=== PATIENT | male | born 1950 | race Caucasian/White ===

== ENCOUNTER 2016-11-07 15:12 | Inpatient (IN) | payer OTHER ==
[2016-11-07] VITALS (8 sets, daily range): BP systolic 119–150; BP diastolic 69–90; PULSE 112–137; RESP 18–20; TEMP 98.5–100.6; O2SAT 96–97
[~2016-11-07] VITALS: Ht 193 cm; Wt 111.9 kg
[~2016-11-07 15:12] MED LIST: ALPR1 PO; AMBI5TAB PO; BENA20TA PO; TEMA7.5C9 PO
[2016-11-07] MEDS ORDERED: ZOLP5TAB3 PO (15:23)
[2016-11-07] MEDS ORDERED: BENA20TA PO (15:23)
[2016-11-07] MEDS ORDERED: XANA1TAB2 PO (15:23)
[2016-11-07] MEDS ORDERED: LEVO25TA4 PO (15:23)
[2016-11-07] MEDS ORDERED: SODIUM CHLOR 0.9% 1000 ML INJ 1,000 ML IV ONE ×2 (15:30→17:45)
--- NOTE | 2016-11-07 15:30 | PD ---
HPI Chief Complaint: General Weakness Time Seen by Provider: 15:20 Travel History International Travel<30 days: No Contact w/Intl Traveler<30days: No Traveled to known affect area: No History of Present Illness HPI 65yo M with PMH of hypothyroidism, anxiety here with multiple complaints. Pt states he has dysuria, urinary frequency, epigastric discomfort, periumbilical abdominal pain today. States he has umbilical hernia and sometimes has the abdominal pain. Pt took 2 xanax prior to coming because he said he was shaking. Denies any sob, n/v, diarrhea, hematuria, focal weakness or numbness. PFSH Past Medical History Anxiety: Yes COPD: Yes Diminished Hearing: No Hypertension: Yes Thyroid Disease: Yes Influenza Vaccination: No ?: Not Past Surgical History Abdominal Surgery: Yes (HERNIA REPAIR x 2) Other Surgery: Yes (SKIN CA REMOVED) Social History Alcohol Use: Yes (2 BEERS/DAILY) Tobacco Use: No Substance Use: No Allergies-Medications (Allergen,Severity, Reaction): Coded Allergies: No Known Allergies (Verified , 11/07/16) Reported Meds & Prescriptions Reported Meds & Active Scripts Active Reported Levothyroxine (Levothyroxine Sodium) 25 Mcg Tab 0 PO DAILY Benazepril (Benazepril HCl) 20 Mg Tab 20 Mg PO DAILY Zolpidem (Zolpidem Tartrate) 5 Mg Tab 5 Mg PO HS PRN Xanax (Alprazolam) 1 Mg Tab 1 Mg PO Q6H PRN Review of Systems Except as stated in HPI: all other systems reviewed are Neg Physical Exam Narrative GENERAL: 65yo M in mild distress. SKIN: Focused skin assessment warm/dry. HEAD: Atraumatic. Normocephalic. EYES: Pupils equal and round. No scleral icterus. No injection or drainage. ENT: No nasal bleeding or discharge. Mucous membranes pink and moist. NECK: Trachea midline. No JVD. CARDIOVASCULAR: Regular rate and rhythm. No murmur appreciated. RESPIRATORY: No accessory muscle use. Clear to auscultation. Breath sounds equal bilaterally. GASTROINTESTINAL: Abdomen soft, +TTP epigastric and periumbilical region. No rebound tenderness or guarding. MUSCULOSKELETAL: No obvious deformities. No clubbing. No cyanosis. No edema. NEUROLOGICAL: Awake and alert. No obvious cranial nerve deficits. Motor grossly within normal limits. Normal speech. PSYCHIATRIC: Appropriate mood and affect; insight and judgment normal. Data Data Last Documented VS Vital Signs Date Time Temp Pulse Resp B/P (MAP) Pulse Ox O2 Delivery O2 Flow Rate FiO2 11/07/16 17:50 100.6 122 18 150/90 (110) 97 Room Air Orders Orders Basic Metabolic Panel (Bmp) (11/07/16 15:26) Complete Blood Count With Diff (11/07/16 15:26) Lipase (11/07/16 15:26) Urinalysis - C+S If Indicated (11/07/16 15:26) Ct Abd/Pel W Iv Contrast(Rout) (11/07/16 15:26) Iv Access Insert/Monitor (11/07/16 15:26) Ecg Monitoring (11/07/16 15:26) Oximetry (11/07/16 15:26) Thyroid Stimulating Hormone (11/07/16 15:26) Troponin I (11/07/16 15:26) Chest, Single Ap (11/07/16 ) Sodium Chlor 0.9% 1000 Ml Inj (Ns 1000 M (11/07/16 15:30) Lactic Acid Sepsis Protocol (11/07/16 15:30) Morphine Inj (Morphine Inj) (11/07/16 15:45) Urine Culture (11/07/16 15:35) Iohexol 350 Inj (Omnipaque 350 Inj) (11/07/16 16:35) Blood Culture (11/07/16 17:08) Ceftriaxone Inj (Rocephin Inj) (11/07/16 17:15) Sodium Chlor 0.9% 1000 Ml Inj (Ns 1000 M (11/07/16 17:45) Acetaminophen (Tylenol) (11/07/16 18:15) Admit Order (Ed Use Only) (11/07/16 ) Labs Laboratory Tests Test 11/07/16 15:30 11/07/16 15:35 11/07/16 17:55 White Blood Count 12.6 TH/MM3 Red Blood Count 5.27 MIL/MM3 Hemoglobin 16.1 GM/DL Hematocrit 49.3 % Mean Corpuscular Volume 93.6 FL Mean Corpuscular Hemoglobin 30.5 PG Mean Corpuscular Hemoglobin Concent 32.6 % Red Cell Distribution Width 12.8 % Platelet Count 147 TH/MM3 Mean Platelet Volume 9.2 FL Neutrophils (%) (Auto) 79.8 % Lymphocytes (%) (Auto) 5.1 % Monocytes (%) (Auto) 9.2 % Eosinophils (%) (Auto) 1.0 % Basophils (%) (Auto) 4.9 % Neutrophils # (Auto) 10.1 TH/MM3 Lymphocytes # (Auto) 0.6 TH/MM3 Monocytes # (Auto) 1.2 TH/MM3 Eosinophils # (Auto) 0.1 TH/MM3 Basophils # (Auto) 0.6 TH/MM3 CBC Comment DIFF FINAL Differential Comment Blood Urea Nitrogen 13 MG/DL Creatinine 1.20 MG/DL Random Glucose 106 MG/DL Calcium Level 9.2 MG/DL Sodium Level 134 MEQ/L Potassium Level 4.3 MEQ/L Chloride Level 101 MEQ/L Carbon Dioxide Level 23.8 MEQ/L Anion Gap 9 MEQ/L Estimat Glomerular Filtration Rate 61 ML/MIN Lactic Acid Level 2.1 mmol/L 2.0 mmol/L Troponin I LESS THAN 0.02 NG/ML Lipase 80 U/L Thyroid Stimulating Hormone 3rd Gen 1.060 uIU/ML Urine Collection Type CLEAN CATCH Urine Color YELLOW Urine Turbidity SLIGHT Urine pH 5.5 Urine Specific [place] 1.017 Urine Protein NEG mg/dL Urine Glucose (UA) NEG mg/dL Urine Ketones NEG mg/dL Urine Occult Blood TRACE Urine Nitrite NEG Urine Bilirubin NEG Urine Leukocyte Esterase SMALL Urine RBC 4-9 /hpf Urine WBC 25-49 /hpf Urine Squamous Epithelial Cells 0-5 /hpf Urine Renal Epithelial Cells 0-5 /hpf Microscopic Urinalysis Comment CULTURE INDICATED Urine Collection Time 15:35 MDM Medical Decision Making Medical Screen Exam Complete: Yes Emergency Medical Condition: Yes Interpretation(s) EKG: Sinus tachycardia at 133bpm. LAD. No ST segment elevation or depression. Differential Diagnosis UTI vs. colitis vs. pancreatitis vs. gastritis vs. atypical ACS Narrative Course 65yo M with multiple complaints. Pt here mainly with dysuria, abdominal pain. Pt is tachycardic in the 130s on arrival. Labs reviewed, mild leukocytosis at 12.6, lactic acid mildly increased at 2.1. UA showed WBC 25-49. Blood cultures sent, pt given ceftriaxone 1gm IV. Troponin negative. Lipase normal. TSH normal. Pt given NS IVF and morphine for pain. Heart rate improved to 112bpm. Sign out to next team to follow up on CTa/p and reevaluate. Diagnosis Primary Impression: Abdominal pain Qualified Codes: R10.13 - Epigastric pain Rosa Reyna DO Nov 07, 2016 15:30
[2016-11-07 15:44] LABS: AUTOMATED NEUTROPHIL # 10.1 TH/MM3 (1.8-7.7); BASOPHIL # 0.6 TH/MM3 (0-0.2); BASOPHIL % 4.9 % (0.0-2.0); EOSINOPHIL # 0.1 TH/MM3 (0-0.4); HEMATOCRIT 49.3 % (39.0-51.0); LYMPH % 5.1 % (9.0-44.0); LYMPHOCYTE # 0.6 TH/MM3 (1.0-4.8); MEAN CELL VOLUME 93.6 FL (80.0-100.0); MEAN CORPUSCULAR HEMOGLOBIN 30.5 PG (27.0-34.0); MEAN CORPUSCULAR HGB CONC 32.6 % (32.0-36.0); MONO % 9.2 % (0.0-8.0); NEUT % 79.8 % (16.0-70.0); PLATELET COUNT 147 TH/MM3 (150-450); RED BLOOD COUNT 5.27 MIL/MM3 (4.50-5.90); RED CELL DISTRIBUTION WIDTH 12.8 % (11.6-17.2); WHITE BLOOD COUNT 12.6 TH/MM3 (4.0-11.0)
[2016-11-07 15:45] LABS: HEMO FLAGS DIFF FINAL
[2016-11-07] MEDS ORDERED: MORPHINE SULFATE 4 MG/ML INJ IV PUSH ONE (15:45)
[2016-11-07 15:58] LABS: CHLORIDE 101 MEQ/L (98-107); POTASSIUM 4.3 MEQ/L (3.5-5.1); SODIUM (NA) 134 MEQ/L (136-145)
[2016-11-07 16:01] LABS: ANION GAP 9 MEQ/L (5-15); BICARBONATE 23.8 MEQ/L (21.0-32.0); BLOOD UREA NITROGEN 13 MG/DL (7-18)
[2016-11-07 16:04] LABS: GLOMERULAR FILTRATION RATE 61 ML/MIN (>89)
[2016-11-07 16:06] LABS: BLOOD, URINE TRACE (NEG); GLUCOSE,URINE NEG (NEG); KETONE, URINE NEG (NEG); NITRITE,URINE NEG (NEG); PH, URINE 5.5 (5.0-8.5)
[2016-11-07 16:08] LABS: METHOD OF COLLECTION CLEAN CATCH
[2016-11-07 16:09] LABS: COMMENT (UR) CULTURE INDICATED; CULTURE IF INDICATED CULTURE INDICATED; RENAL EPITHELIAL CELLS 0-5 /hpf; SQUAMOUS EPITHELIAL CELL URINE 0-5 /hpf (0-5); URINE COLOR YELLOW (YELLW/STRAW)
[2016-11-07] MEDS ORDERED: IOHEXOL 350 MG/ML 10 ML VIAL (for RAD DIAG) IVCONTRAST ONE (16:35)
--- NOTE | 2016-11-07 17:00 | RADRPT ---
EXAM DATE/TIME: 11/07/2016 16:30 [facility] COMPARISON: No previous studies available for comparison. INDICATIONS : Epigastric pain. IV CONTRAST: 95 cc Omnipaque 350 (iohexol) IV ORAL CONTRAST: No oral contrast ingested. RADIATION DOSE: 23.71 CTDIvol (mGy) MEDICAL HISTORY : Hypertension. Chronic obstructive pulmonary disease. Skin cancer. SURGICAL HISTORY : Hernia repair. ENCOUNTER: Initial ACUITY: 1 day PAIN SCALE: 5/10 LOCATION: upper quadrant TECHNIQUE: Volumetric scanning of the abdomen and pelvis was performed. Using automated exposure control and ad justment of the mA and/or kV according to patient size, radiation dose was kept as low as reasonably achievable to obtain optimal diagnostic quality images. DICOM format image data is available electro nically for review and comparison. FINDINGS: Liver is fatty. Trace edema/vascular engorgement seen inferior to the pancreas and very mild pancreat itis possible in the proper clinical setting. The spleen, adrenal glands and kidneys are all without an acute abnormality. No obstruction or acute inflammatory changes seen of the gastrointestinal tract. There is some scarring in the right inguinal canal, presumably postoperative. Prostate is enlarged. Thick walled and probably trabeculated urinary bladder. CONCLUSION: 1. Low grade acute pancreatitis possible in the proper clinical setting. 2. Fatty liver. 3. Possible cystitis versus bladder wall thickening from prostate enlargement. 4. Scarring related to previous inguinal hernia repair. Almas Zheng MD on November 07, 2016 at 16:55 Board Certified Radiologist. This report was verified electronically.
--- NOTE | 2016-11-07 17:07 | RADRPT ---
EXAM DATE/TIME: 11/07/2016 16:50 [facility] COMPARISON: No previous studies available for comparison. INDICATIONS : High blood pressure today with chest discomfort. MEDICAL HISTORY : Hypertension. Chronic obstructive pulmonary disease. SURGICAL HISTORY : None. ENCOUNTER: Initial ACUITY: 1 day PAIN SCORE: 2/10 LOCATION: Bilateral chest FINDINGS: A single view of the chest demonstrates the lungs to be symmetrically aerated without evidence of mas s, infiltrate or effusion. The cardiomediastinal contours are unremarkable. Osseous structures are intact. CONCLUSION: No evidence of acute cardiopulmonary disease. Almas Zheng MD on November 07, 2016 at 17:06 Board Certified Radiologist. This report was verified electronically.
[2016-11-07] MEDS ORDERED: cefTRIAXone INJ 1,000 MG in SODIUM CHLORIDE 0.9% INJ 100 ML IV ONE (17:15)
[2016-11-07 17:47] LABS: LACTIC ACID GHOST NOT REPORTABLE
[2016-11-07] MEDS ORDERED: ACETAMINOPHEN 325 MG TAB PO ONE (18:15)
--- NOTE | 2016-11-07 18:52 | PD ---
Physical Exam Narrative Patient signed out to me by Dr. Reyna. Please see her documentation for complete details. Briefly, patient is a 65-year-old male comes in complaining of lower abdominal pain and pain on urination. Exam shows tenderness to the epigastric area. Patient is tachycardic. Data Data Last Documented VS Vital Signs Date Time Temp Pulse Resp B/P (MAP) Pulse Ox O2 Delivery O2 Flow Rate FiO2 11/07/16 17:50 100.6 122 18 150/90 (110) 97 Room Air Orders Orders Basic Metabolic Panel (Bmp) (11/07/16 15:26) Complete Blood Count With Diff (11/07/16 15:26) Lipase (11/07/16:26) Urinalysis - C+S If Indicated (11/07/16:26) Ct Abd/Pel W Iv Contrast(Rout) (11/07/16 15:26) Iv Access Insert/Monitor (11/07/16 15:26) Ecg Monitoring (11/07/16:26) Oximetry (11/07/16:26) Thyroid Stimulating Hormone (11/07/16 15:26) Troponin I (11/07/16 15:26) Chest, Single Ap (11/07/16 ) Sodium Chlor 0.9% 1000 Ml Inj (Ns 1000 M (11/07/16 15:30) Lactic Acid Sepsis Protocol (11/07/16 15:30) Morphine Inj (Morphine Inj) (11/07/16 15:45) Urine Culture (11/07/16 15:35) Iohexol 350 Inj (Omnipaque 350 Inj) (11/07/16 16:35) Blood Culture (11/07/16 17:08) Ceftriaxone Inj (Rocephin Inj) (11/07/16 17:15) Sodium Chlor 0.9% 1000 Ml Inj (Ns 1000 M (11/07/16 17:45) Acetaminophen (Tylenol) (11/07/16 18:15) Labs Laboratory Tests Test 11/07/16 15:30 11/07/16 15:35 11/07/16 17:55 White Blood Count 12.6 TH/MM3 Red Blood Count 5.27 MIL/MM3 Hemoglobin 16.1 GM/DL Hematocrit 49.3 % Mean Corpuscular Volume 93.6 FL Mean Corpuscular Hemoglobin 30.5 PG Mean Corpuscular Hemoglobin Concent 32.6 % Red Cell Distribution Width 12.8 % Platelet Count 147 TH/MM3 Mean Platelet Volume 9.2 FL Neutrophils (%) (Auto) 79.8 % Lymphocytes (%) (Auto) 5.1 % Monocytes (%) (Auto) 9.2 % Eosinophils (%) (Auto) 1.0 % Basophils (%) (Auto) 4.9 % Neutrophils # (Auto) 10.1 TH/MM3 Lymphocytes # (Auto) 0.6 TH/MM3 Monocytes # (Auto) 1.2 TH/MM3 Eosinophils # (Auto) 0.1 TH/MM3 Basophils # (Auto) 0.6 TH/MM3 CBC Comment DIFF FINAL Differential Comment Blood Urea Nitrogen 13 MG/DL Creatinine 1.20 MG/DL Random Glucose 106 MG/DL Calcium Level 9.2 MG/DL Sodium Level 134 MEQ/L Potassium Level 4.3 MEQ/L Chloride Level 101 MEQ/L Carbon Dioxide Level 23.8 MEQ/L Anion Gap 9 MEQ/L Estimat Glomerular Filtration Rate 61 ML/MIN Lactic Acid Level 2.1 mmol/L 2.0 mmol/L Troponin I LESS THAN 0.02 NG/ML Lipase 80 U/L Thyroid Stimulating Hormone 3rd Gen 1.060 uIU/ML Urine Collection Type CLEAN CATCH Urine Color YELLOW Urine Turbidity SLIGHT Urine pH 5.5 Urine Specific [place] 1.017 Urine Protein NEG mg/dL Urine Glucose (UA) NEG mg/dL Urine Ketones NEG mg/dL Urine Occult Blood TRACE Urine Nitrite NEG Urine Bilirubin NEG Urine Leukocyte Esterase SMALL Urine RBC 4-9 /hpf Urine WBC 25-49 /hpf Urine Squamous Epithelial Cells 0-5 /hpf Urine Renal Epithelial Cells 0-5 /hpf Microscopic Urinalysis Comment CULTURE INDICATED Urine Collection Time 15:35 MDM Supervised Visit with EYAD: No Narrative Course CT abdomen and pelvis shows evidence of pancreatitis as well as thickening of the bladder wall and enlargement of the prostate. Urine is positive for UTI. Patient has a white blood cell count of 12. Patient became febrile while in the emergency department. He was given another liter of fluids as well as Tylenol. He was given Rocephin for his UTI. He will be admitted for urosepsis. Diagnosis Primary Impression: UTI (urinary tract infection) Qualified Codes: N30.00 - Acute cystitis without hematuria Additional Impression: Sepsis Qualified Codes: A41.9 - Sepsis, unspecified organism Admitting Information Admitting Physician Requests: Admit Condition: Stable Viola Mcgill MD Nov 07, 2016 18:52
[2016-11-07] MEDS ORDERED: SODIUM CHLORIDE 0.9% FLUSH 10 ML FLUSH IV FLUSH PRN (19:00)
[2016-11-07] MEDS ORDERED: LACTULOSE SYRUP 20 GM/30 ML CUP PO PRN (19:00)
[2016-11-07] MEDS ORDERED: MAGNESIUM HYDROXIDE SUSP 30 ML CUP PO PRN (19:00)
[2016-11-07] MEDS ORDERED: ONDANSETRON HCL 4 MG/2 ML VIAL IVP PRN (19:00)
[2016-11-07] MEDS ORDERED: NALOXONE HCL 0.4 MG/ML AMP IV PRN (19:00)
[2016-11-07] MEDS ORDERED: ACETAMINOPHEN/HYDROcodone 325 MG/7.5 MG TAB PO PRN (19:00)
[2016-11-07] MEDS ORDERED: ACETAMINOPHEN 325 MG TAB PO PRN (19:00)
[2016-11-07] MEDS ORDERED: cefTRIAXone INJ 1,000 MG in SODIUM CHLORIDE 0.9% INJ 100 ML IV SCH (19:00)
--- NOTE | 2016-11-07 19:54 | HHI.HP ---
HPI Service [facility] Primary Care Physician Elle Ashby MD Admission Diagnosis urosepsis Diagnoses: Travel History International Travel<30 Days: No Contact w/Intl Traveler <30 Da: No Traveled to Known Affected Are: No Sepsis Criteria SIRS Criteria (2 or more): Temp > 100.9 or < 96.8, Heart rate over 90, WBC > 27874, < 4000 or > 10% bands Sepsis Criteria (SIRS+source): Infect source susp/known Severe Sepsis (+one): Lactate >2 History of Present Illness Mr. Crum is a 65-year-old male. He came into the hospital today secondary to burning with urination which progressed to an inability to urinate. He is found to have a urinary tract infection. He denies any symptoms prior to the onset of symptoms this morning. He has no prior history of urinary tract infection. He says last time he was in the hospital is more than 20 years ago and was related to hernia surgery. With treatments in the ER he is starting to feel better. Criteria for severe sepsis is present including fever, tachycardia , leukocytosis, and lactic acidosis. No reports of encephalopathy. No nausea or vomiting or diarrhea. There is some epigastric pain and this correlated with findings on imaging of pancreatitis. Lipase is negative. No episodes of hypotension. Review of Systems Constitutional: COMPLAINS OF: Fatigue, Fever, Chills, DENIES: Change in appetite Endocrine: COMPLAINS OF: Polyuria, DENIES: Heat/cold intolerance Eyes: DENIES: Blurred vision, Diplopia, Eye inflammation, Eye pain Ears, nose, mouth, throat: DENIES: Tinnitus, Hearing loss, Vertigo Respiratory: DENIES: Apneas, Cough, Snoring, Wheezing, Sputum production Cardiovascular: DENIES: Chest pain, Palpitations, Syncope Gastrointestinal: DENIES: Abdominal pain, Black stools, Bloody stools Genitourinary: COMPLAINS OF: Urinary frequency, Urinary incontinence, Dysuria Musculoskeletal: DENIES: Joint pain, Muscle aches, Stiffness Integumentary: DENIES: Abnormal pigmentation Hematologic/lymphatic: DENIES: Bruising Immunologic/allergic: DENIES: Eczema Neurologic: DENIES: Abnormal gait, Headache, Localized weakness Psychiatric: DENIES: Confusion, Hallucinations, Agitation Past Family Social History Past Medical History History of bilateral inguinal hernia Insomnia General anxiety disorder Hypertension Hypothyroidism Past Surgical History Bilateral inguinal hernia repair History of repair of leg fracture in childhood Reported Medications Reported Meds & Active Scripts Active Reported Levothyroxine (Levothyroxine Sodium) 25 Mcg Tab 0 PO DAILY Benazepril (Benazepril HCl) 20 Mg Tab 20 Mg PO DAILY Zolpidem (Zolpidem Tartrate) 5 Mg Tab 5 Mg PO HS PRN Xanax (Alprazolam) 1 Mg Tab 1 Mg PO Q6H PRN Allergies: Coded Allergies: No Known Allergies (Verified , 11/07/16) Family History No positive family history in the patient's mother or father Social History Past history of smoking, quit 10 years ago No alcohol abuse No drug abuse Physical Exam Vital Signs Vital Signs Date Time Temp Pulse Resp B/P (MAP) Pulse Ox O2 Delivery O2 Flow Rate FiO2 11/07/16 19:15 118 20 98 11/07/16 19:15 99.2 118 20 119/85 (96) 96 11/07/16 17:50 100.6 122 18 150/90 (110) 97 Room Air 11/07/16 17:00 112 11/07/16 16:59 112 20 135/81 (99) 97 Room Air 11/07/16 15:48 18 11/07/16 15:31 137 18 134/88 (103) 97 Room Air 11/07/16 15:17 99.3 133 18 123/69 (87) 96 Physical Exam GENERAL: NAD, A&Ox3 HEAD: Normocephalic. NECK: Supple, trachea midline. No lymphadenopathy. EYES: No scleral icterus. No injection or drainage. CARDIOVASCULAR: Regular rate and rhythm without murmurs, gallops, or rubs. RESPIRATORY: Breath sounds equal bilaterally. No accessory muscle use. GASTROINTESTINAL: Abdomen soft, non-tender, nondistended. MUSCULOSKELETAL: No cyanosis, or edema. SKIN: Warm and dry. NEURO: No focal neurological deficitis. Laboratory Laboratory Tests Test 11/07/16 15:30 11/07/16 15:35 11/07/16 17:55 White Blood Count 12.6 Red Blood Count 5.27 Hemoglobin 16.1 Hematocrit 49.3 Mean Corpuscular Volume 93.6 Mean Corpuscular Hemoglobin 30.5 Mean Corpuscular Hemoglobin Concent 32.6 Red Cell Distribution Width 12.8 Platelet Count 147 Mean Platelet Volume 9.2 Neutrophils (%) (Auto) 79.8 Lymphocytes (%) (Auto) 5.1 Monocytes (%) (Auto) 9.2 Eosinophils (%) (Auto) 1.0 Basophils (%) (Auto) 4.9 Neutrophils # (Auto) 10.1 Lymphocytes # (Auto) 0.6 Monocytes # (Auto) 1.2 Eosinophils # (Auto) 0.1 Basophils # (Auto) 0.6 CBC Comment DIFF FINAL Differential Comment Blood Urea Nitrogen 13 Creatinine 1.20 Random Glucose 106 Calcium Level 9.2 Sodium Level 134 Potassium Level 4.3 Chloride Level 101 Carbon Dioxide Level 23.8 Anion Gap 9 Estimat Glomerular Filtration Rate 61 Lactic Acid Level 2.1 2.0 Troponin I LESS THAN 0.02 Lipase 80 Thyroid Stimulating Hormone 3rd Gen 1.060 Urine Collection Type CLEAN CATCH Urine Color YELLOW Urine Turbidity SLIGHT Urine pH 5.5 Urine Specific [place] 1.017 Urine Protein NEG Urine Glucose (UA) NEG Urine Ketones NEG Urine Occult Blood TRACE Urine Nitrite NEG Urine Bilirubin NEG Urine Leukocyte Esterase SMALL Urine RBC 4-9 Urine WBC 25-49 Urine Squamous Epithelial Cells 0-5 Urine Renal Epithelial Cells 0-5 Microscopic Urinalysis Comment CULTURE INDICATED Urine Collection Time 15:35 Date/Time Source Procedure Growth Status 11/07/16 17:08 Blood Peripheral Aerobic Blood Culture Pending Received 11/07/16 17:08 Blood Peripheral Anaerobic Blood Culture Pending Received 11/07/16 15:35 Urine Clean Catch Urine Culture Pending Received Result Diagram: 11/07/16 1530 11/07/16 1530 Septic Shock Reassessment Heart: Regular rate and rhythm Lungs: Clear Skin: Warm Peripheral Pulses: Bounding Right Radial Bounding Left Radial Bounding Right Posterior Tibial Bounding Left Posterior Tibial Capillary Refill: Brisk Caprini VTE Risk Assessment Caprini VTE Risk Assessment: No/Low Risk (score <= 1) Caprini Risk Assessment Model Point Value = 1 Point Value = 2 Point Value = 3 Point Value = 5 Age 41-60 Minor surgery BMI > 25 kg/m2 Swollen legs Varicose veins or History of unexplained or recurrent spontaneous Oral contraceptives or hormone replacement Sepsis (< 1 month) Serious lung disease, including pneumonia (< 1 month) Abnormal pulmonary function Acute myocardial infarction Congestive heart failure (< 1 month) History of inflammatory bowel disease Medical patient at bed rest Age 61-74 Arthroscopic surgery Major open surgery (> 45 min) Laparoscopic surgery (> 45 min) Malignancy Confined to bed (> 72 hours) Immobilizing plaster cast Central venous access Age >= 75 History of VTE Family history of VTE Factor V Leiden Prothrombin [id number] Lupus anticoagulant Anticardiolipin antibodies Elevated serum homocysteine Heparin-induced thrombocytopenia Other congenital or acquired thrombophilia Stroke (< 1 month) Elective arthroplasty Hip, pelvis, or leg fracture Acute spinal cord injury (< 1 month) Prophylaxis Regimen Total Risk Factor Score Risk Level Prophylaxis Regimen 0-1 Low Early ambulation 2 Moderate Order ONE of the following: *Sequential Compression Device (SCD) *Heparin 5000 units SQ BID 3-4 Higher Order ONE of the following medications: *Heparin 5000 units SQ TID *Enoxaparin/Lovenox 40 mg SQ daily (WT < 150 kg, CrCl > 30 mL/min) *Enoxaparin/Lovenox 30 mg SQ daily (WT < 150 kg, CrCl > 10-29 mL/min) *Enoxaparin/Lovenox 30 mg SQ BID (WT < 150 kg, CrCl > 30 mL/min) AND/OR *Sequential Compression Device (SCD) 5 or more Highest Order ONE of the following medications: *Heparin 5000 units SQ TID (Preferred with Epidurals) *Enoxaparin/Lovenox 40 mg SQ daily (WT < 150 kg, CrCl > 30 mL/min) *Enoxaparin/Lovenox 30 mg SQ daily (WT < 150 kg, CrCl > 10-29 mL/min) *Enoxaparin/Lovenox 30 mg SQ BID (WT < 150 kg, CrCl > 30 mL/min) AND *Sequential Compression Device (SCD) Assessment and Plan Problem List: (1) Severe sepsis ICD Code: A41.9 - Sepsis, unspecified organism; R65.20 - Severe sepsis without septic shock (2) UTI (urinary tract infection) ICD Code: N39.0 - Urinary tract infection, site not specified Status: Acute (3) Abdominal pain ICD Code: R10.9 - Unspecified abdominal pain Status: Acute (4) Sepsis ICD Code: A41.9 - Sepsis, unspecified organism Status: Acute Assessment and Plan Assessment and plan 65-year-old male admitted with severe sepsis secondary to UTI Severe sepsis IV hydration Follow vital signs closely Monitor for resolution of sepsis Treat infection Urinary tract infection Follow urine cultures Rocephin Probiotics Once sepsis is resolved May consider discharge and will antibiotic oral therapy. Insomnia As needed zolpidem General anxiety disorder As needed Xanax Hypertension Continue Benazapril Follow blood pressures Hypothyroidism Continue Synthroid Monitor as an outpatient DVT prophylaxis Lovenox Physician Certification 2 Midnight Certification Type: Admission for Inpatient Services Order for Inpatient Services The services are ordered in accordance with Medicare regulations or non- Medicare payer requirements, as applicable. In the case of services not specified as inpatient-only, they are appropriately provided as inpatient services in accordance with the 2-midnight benchmark. Estimated LOS (days): 2 days is the estimated time the patient will need to remain in the hospital, assuming treatment plan goals are met and no additional complications. Post-Hospital Plan: Home Problem Qualifiers (1) UTI (urinary tract infection): Qualified Codes: N30.00 - Acute cystitis without hematuria (2) Sepsis: Qualified Codes: A41.9 - Sepsis, unspecified organism Juwan Kwok MD Nov 07, 2016 19:54
[2016-11-07] MEDS: SODIUM CHLOR 0.9% 1000 ML INJ 1,000 ML IV SCH (19:57)
[2016-11-07] MEDS: ACETAMINOPHEN/HYDROcodone 325 MG/5 MG TAB PO PRN (19:58)
[2016-11-07] MEDS ORDERED: ALPRAZolam 0.5 MG TAB PO PRN (20:00)
[2016-11-07] MEDS ORDERED: ENOXAPARIN SODIUM 40 MG/0.4 ML SYRINGE SQ SCH (20:00)
[2016-11-07] MEDS ORDERED: ZOLPIDEM TARTRATE 5 MG TAB PO PRN (20:00)
[2016-11-07] MEDS: SODIUM CHLORIDE 0.9% FLUSH 10 ML FLUSH IV FLUSH SCH (21:00)
[2016-11-07] MEDS: DOCUSATE SODIUM 50 MG/SENNA 8.6 MG TAB PO SCH (21:23)
[2016-11-08] VITALS: BP 105/62; PULSE 112; RESP 20; TEMP 100.9; O2SAT 95
[2016-11-08 04:00] VITALS: BP 112/78; PULSE 106; RESP 20; TEMP 99.8; O2SAT 92
[2016-11-08] MEDS: SODIUM CHLOR 0.9% 1000 ML INJ 1,000 ML IV SCH (05:09)
[2016-11-08] MEDS ORDERED: LEVOTHYROXINE SODIUM 25 MCG TAB PO SCH (06:00)
[2016-11-08 06:43] LABS: HEMATOCRIT 41.6 % (39.0-51.0); MEAN CELL VOLUME 91.3 FL (80.0-100.0); MEAN CORPUSCULAR HEMOGLOBIN 31.3 PG (27.0-34.0); MEAN CORPUSCULAR HGB CONC 34.3 % (32.0-36.0); PLATELET COUNT 137 TH/MM3 (150-450); RED BLOOD COUNT 4.55 MIL/MM3 (4.50-5.90); RED CELL DISTRIBUTION WIDTH 12.4 % (11.6-17.2); WHITE BLOOD COUNT 15.1 TH/MM3 (4.0-11.0)
[2016-11-08 07:00] LABS: CHLORIDE 103 MEQ/L (98-107); POTASSIUM 3.9 MEQ/L (3.5-5.1); SODIUM (NA) 136 MEQ/L (136-145)
[2016-11-08 07:01] LABS: HEMO FLAGS AUTO DIFF
[2016-11-08 07:27] LABS: POLYS (SEG NEUTROPHILS) 86 % (16-70); WBC DIFF SAMPLE 100
[2016-11-08 07:28] LABS: PLATELET ESTIMATE SMEAR LOW (NORMAL); PLATELET MORPHOLOGY NORMAL (NORMAL); SCAN/DIFF FINAL DIFF MANUAL
[2016-11-08 07:45] LABS: ALKALINE PHOSPHATASE 46 U/L (45-117); ALT (GPT) 29 U/L (12-78); ANION GAP 8 MEQ/L (5-15); AST (GOT) 14 U/L (15-37); BICARBONATE 25.3 MEQ/L (21.0-32.0); BLOOD UREA NITROGEN 11 MG/DL (7-18); GLOMERULAR FILTRATION RATE 67 ML/MIN (>89); TOTAL BILIRUBIN ADULT 0.8 MG/DL (0.2-1.0)
[2016-11-08 08:00] VITALS: BP 129/79; PULSE 105; PULSE 106; RESP 20; TEMP 99.7; O2SAT 92
[2016-11-08] MEDS ORDERED: HALOPERIDOL LACTATE 5 MG/ML AMP IM PRN (08:00)
[2016-11-08] MEDS ORDERED: LORazepam 2 MG/ML VIAL IV PUSH PRN ×4 (08:00)
[2016-11-08] MEDS ORDERED: FLUMAZENIL 0.5 MG/5 ML VIAL IV PUSH PRN (08:00)
[2016-11-08] MEDS ORDERED: LORazepam 1 MG TAB PO PRN (08:00)
[2016-11-08] MEDS ORDERED: LORazepam 2 MG TAB PO PRN (08:00)
[2016-11-08] MEDS ORDERED: MULTIVITAMINS/MINERALS THERAPEUTIC TAB PO SCH (09:00)
[2016-11-08] MEDS ORDERED: FOLIC ACID 1 MG TAB PO SCH (09:00)
[2016-11-08] MEDS ORDERED: LISINOPRIL 20 MG TAB PO SCH (09:00)
[2016-11-08] MEDS: SODIUM CHLORIDE 0.9% FLUSH 10 ML FLUSH IV FLUSH SCH (09:00)
[2016-11-08] MEDS ORDERED: THIAMINE HCL 100 MG TAB PO SCH (09:00)
[2016-11-08] MEDS: LACTOBACILLUS ACIDOPHILUS TAB PO SCH ×2 (09:01→13:34)
[2016-11-08] MEDS: DOCUSATE SODIUM 50 MG/SENNA 8.6 MG TAB PO SCH (09:01)
[2016-11-08] MEDS: ACETAMINOPHEN/HYDROcodone 325 MG/5 MG TAB PO PRN (11:27)
[2016-11-08 12:00] VITALS: BP 120/78; PULSE 95; RESP 20; TEMP 97.8; O2SAT 98
[2016-11-08] MEDS ORDERED: CIPR-9 PO (13:53)
[2016-11-08] MEDS ORDERED: BACT800T5 PO (13:53)
[2016-11-08] MEDS ORDERED: LACTTAB8 PO (13:53)
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
[2016-11-08 14:10] LABS: BASOPHIL # 0.1 TH/MM3 (0-0.2); BASOPHIL % 0.5 % (0.0-2.0); EOSINOPHIL % 0.3 % (0.0-4.0); HEMATOCRIT 43.8 % (39.0-51.0); LYMPH % 7.2 % (9.0-44.0); LYMPHOCYTE # 1.1 TH/MM3 (1.0-4.8); MEAN CELL VOLUME 92.8 FL (80.0-100.0); MEAN CORPUSCULAR HEMOGLOBIN 31.2 PG (27.0-34.0); MEAN CORPUSCULAR HGB CONC 33.7 % (32.0-36.0); MONO % 9.2 % (0.0-8.0); NEUT % 82.8 % (16.0-70.0); PLATELET COUNT 143 TH/MM3 (150-450); RED BLOOD COUNT 4.72 MIL/MM3 (4.50-5.90); RED CELL DISTRIBUTION WIDTH 12.2 % (11.6-17.2); WHITE BLOOD COUNT 15.6 TH/MM3 (4.0-11.0)
[2016-11-08 14:38] LABS: HEMO FLAGS DIFF FINAL
[2016-11-08] MEDS ORDERED: cefTRIAXone INJ 1,000 MG in SODIUM CHLORIDE 0.9% INJ 100 ML IV SCH (17:00)
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
== END 2016-11-08 15:45 | disposition home or self-care (01) | DRG 871 ==
LOC: PHED 15:12 → PHEDA 18:50 → PH3A 20:47
PROVIDERS: ADMIT Hospitalist; ATTEND Hospitalist
DX: A41.9 Sepsis, unspecified organism (principal); K85.90 Acute pancreatitis without necrosis or infection, unspecified; N39.0 Urinary tract infection, site not specified; I10 Essential (primary) hypertension; R65.20 Severe sepsis without septic shock; G47.00 Insomnia, unspecified; F41.1 Generalized anxiety disorder; E03.9 Hypothyroidism, unspecified; Z87.891 Personal history of nicotine dependence; J44.9 Chronic obstructive pulmonary disease, unspecified; Z85.828 Personal history of other malignant neoplasm of skin
CPT/HCPCS: 71010; 74177; 80048; 80053; 81001; 83605; 83690; 84443; 84484; 85007; 85025; 85027; 87040; 87077; 87086; 87186; 93005; 96361; 96365; 96375; J0696; J1650; J2270; J7030; Q9967